=== PATIENT | female | born 1995 | race African-American/Black ===

== ENCOUNTER 2022-02-27 00:45 | Emergency (ER) | payer MEDICAID ==
[~2022-02-27] VITALS: Ht 165.1 cm; Wt 84.5 kg
[2022-02-27] MEDS ORDERED: IBUP-2028 MT (02:21)
[2022-02-27 02:30] VITALS: BP 132/82
== END 2022-02-27 02:34 | disposition home or self-care (01) ==
LOC: ER 00:45
DX: S61.211A Laceration without foreign body of left index finger without damage to nail, initial encounter (principal); W26.0XXA Contact with knife, initial encounter; Y93.89 Activity, other specified; Y92.89 Other specified places as the place of occurrence of the external cause; Y99.8 Other external cause status
CPT/HCPCS: 12001; 99282